=== PATIENT | female | born 1960 | race African-American/Black ===

== ENCOUNTER → 2020-02-02 | Outpatient (CLI) | payer OTHER ==
--- NOTE | 2020-02-02 14:45 | RADIOLOGY REPORT (SQ) ---
EXAM DESCRIPTION: CT RT LOWER EXTREMITY WITHOUT IMAGES COMPLETED DATE/TIME: 02/02/2020 10:34 am REASON FOR STUDY: S82.841S DISPLACED BIMALLEOLAR FRACTURE OF RIGHT LOWER LEG, SEQUELA S82.841S DISP LACED BIMALLEOLAR FRACTURE OF RIGHT LOWER LEG, medial hardware cannulated screws x2 superimposed acro ss medial joint on available plain films CT recent examination. Patient is unable to tolerate additi onal positions, CT scan to further evaluate screw position COMPARISON: None. TECHNIQUE: CT scan of the right ankle performed without intravenous or oral contrast. Images review ed with soft tissue and bone windows. Reconstructed coronal and sagittal MPR images reviewed. All i mages stored on PACS. All CT scanners at this facility use dose modulation, iterative reconstruction, and/or weight based d osing when appropriate to reduce radiation dose to as low as reasonably achievable (ALARA). [facility]: Dose Right [facility]: CareDose [facility]: Dose Right [facility]: Teradose 4D [facility]: [employer] RADIATION DOSE: CT Rad equipment meets quality standard of care and radiation dose reduction techniq ues were employed. CTDIvol: 4.1 mGy. DLP: 118 mGy-cm. mGy. LIMITATIONS: None. FINDINGS: Bones: There is plate and screw fixation traversing the distal fibula. No evidence of carito dware fracture, loosening or subsidence. There also 2 screws traversing the medial malleoli S at the distal tibia. Both screws appear well seated within the distal tibia without evidence of hardware f racture, loosening or subsidence. Healing nondisplaced medial malleolar fracture. No acute fracture . There is an osteochondral lesion at the anterior talar dome at the articular surface. No acute ta lar fracture. Joints: There is a small ankle joint effusion. Normal ankle mortise alignment. No intra-articular loose body. Soft tissues: Diffuse subcutaneous edema involving the forefoot, midfoot, and ankle. No focal drain able abscess. Muscles have normal appearance. Ligaments appear intact. Other: None. IMPRESSION: 1. Plate and screw fixation of the distal fibula and 2 like screws at the medial malleoli S. No evid ence of hardware fracture, loosening or subsidence. The medial malleolar screws are well seated with in the bone. 2. Osteochondral lesion anterior talar dome. TECHNICAL DOCUMENTATION: JOB ID: [id number] Quality ID # [id number]: Final reports with documentation of one or more dose reduction techniques (e.g., Au tomated exposure control, adjustment of the mA and/or kV according to patient size, use of iterative reconstruction technique) 2010 [employer]- All Rights Reserved Reading location - IP/workstation name: [email or web address]
== END ==
LOC: RAD 10:42
PROVIDERS: ATTEND Orthopaedic Surgery
DX: S82.841S Displaced bimalleolar fracture of right lower leg, sequela (principal); X58.XXXS Exposure to other specified factors, sequela; M92.59 Other juvenile osteochondrosis of tibia and fibula